=== PATIENT | female | born 1975 | race Caucasian/White ===

== ENCOUNTER 2018-04-28 06:28 | Emergency (ER) | payer SELFPAY ==
[2018-04-28] MEDS ORDERED: OCTREOTIDE ACETATE INJ/PF 100 MCG/1 ML SDV IV ONE (06:50)
[2018-04-28] MEDS ORDERED: PANTOPRAZOLE SODIUM 40 MG VIAL IV ONE (06:50)
[2018-04-28] MEDS ORDERED: NORMAL SALINE 1000 ML 1,000 ML IV ONE (06:50)
[2018-04-28] MEDS ORDERED: NORMAL SALINE 500 ML with OCTREOTIDE ACETATE 500 MCG IV PRN ×2 (06:50)
[2018-04-28] MEDS ORDERED: PANTOPRAZOLE SODIUM 40 MG VIAL IV PRN (06:55)
--- NOTE | 2018-04-28 06:55 | ER Document Report ---
ED General - General Chief Complaint: Vomiting Stated Complaint: VOMITING BLOOD Time Seen by Provider: 04/28/18 06:35 Mode of Arrival: Ambulatory Information source: Patient Notes: 42-year-old female history of fatty liver disease with jaundice who does admit to using alcohol drinking 2 days ago presents with complaints of vomiting blood. Patient notes that this morning she woke and started vomiting 6 with large amount of blood with clots. Patient denies any previous history of such. She admits to mild epigastric pain. She denies any dark stools. Patient notes that there is no extensive family history of GI bleeds and deaths secondary to GI issues. Patient does not take any Tylenol or Motrin - HPI Onset: This morning Onset/Duration: Sudden Quality of pain: Sharp Severity: Mild Pain Level: 1 Associated symptoms: Nausea, Vomiting Exacerbated by: Denies Relieved by: Denies Similar symptoms previously: No Recently seen / treated by doctor: No - Related Data Allergies/Adverse Reactions: No Known Allergies Allergy (Unverified 04/28/18 06:43) Past Medical History - Social History Smoking Status: Former Smoker Cigarette use (# per day): No Chew tobacco use (# tins/day): No Smoking Education Provided: No Frequency of alcohol use: Social Drug Abuse: None Family History: Other - Family history of GI bleeds Patient has suicidal ideation: No Patient has homicidal ideation: No Renal/ Medical History: Denies: Hx Peritoneal Dialysis Psychiatric Medical History: Reports: Hx Depression Review of Systems - Review of Systems Notes: REVIEW OF SYSTEMS: CONSTITUTIONAL : Denies fever, chills, or sweats. Denies recent illness. EENT: Denies eye, ear, throat, or mouth pain or symptoms. Denies nasal or sinus congestion or discharge. Denies throat, tongue, or mouth swelling or difficulty swallowing. CARDIOVASCULAR: Denies chest pain. Denies palpitations or racing or irregular heart beat. Denies ankle edema. RESPIRATORY: Denies cough, cold, or chest congestion. Denies shortness of breath, difficulty breathing, or wheezing. GASTROINTESTINAL: Admits to vomiting blood GENITOURINARY: Denies difficulty urinating, painful urination, burning, frequency, blood in urine, or discharge. FEMALE GENITOURINARY: Denies vaginal bleeding, heavy or abnormal periods, irregular periods. Denies vaginal discharge or odor. MUSCULOSKELETAL: Denies back or neck pain or stiffness. Denies joint pain or swelling. SKIN: Denies rash, lesions or sores. HEMATOLOGIC : Denies easy bruising or bleeding. LYMPHATIC: Denies swollen, enlarged glands. NEUROLOGICAL: Denies confusion or altered mental status. Denies passing out or loss of consciousness. Denies dizziness or lightheadedness. Denies headache. Denies weakness or paralysis or loss of use of either side. Denies problems with gait or speech. Denies sensory loss, numbness, or tingling. Denies seizures. PSYCHIATRIC: Denies anxiety or stress. Denies depression, suicidal ideation, or homicidal ideation. ALL OTHER SYSTEMS REVIEWED AND NEGATIVE. PHYSICAL EXAMINATION: GENERAL: Well-appearing, well-nourished and in no acute distress. HEAD: Atraumatic, normocephalic. EYES: Pupils are equal round reactive to light icterus noted ENT: Nares patent, oropharynx clear without exudates. Moist mucous membranes. NECK: Normal range of motion, supple without lymphadenopathy LUNGS: Breath sounds clear to auscultation bilaterally and equal. No wheezes rales or rhonchi. HEART: Tachycardic ABDOMEN: Soft, nontender, nondistended abdomen. No guarding, no rebound. No masses appreciated. Female : deferred Musculoskeletal: Normal range of motion, no pitting or edema. No cyanosis. NEUROLOGICAL: Cranial nerves grossly intact. Normal speech, normal gait. Normal sensory, motor exams PSYCH: Normal mood, normal affect. SKIN: Patient is jaundiced Dictation was performed using [employer] voice recognition software Physical Exam - Vital signs Vitals: Resp Pulse Ox 23 H 99 04/28/18 06:30 04/28/18 06:30 Course - Re-evaluation Re-evalutation: 04/28/18 06:55 This is a 42-year-old female who appears older than stated age who is chronically jaundiced presenting with a GI bleed, given history of alcohol abuse octreotide Protonix IV fluids have been ordered lab work pending 04/28/18 07:40 [facility] paged 04/28/18 08:[address] Carver 04/28/18 13:36 pt has vomited blood and noted dark stools now, continues to be stable with max hr 101, bp 107/74 - Vital Signs Vital signs: Temp Pulse Resp BP Pulse Ox 98.8 F 99 14 107/73 97 04/28/18 12:58 04/28/18 12:58 04/28/18 12:58 04/28/18 12:58 04/28/18 12:58 - Laboratory Result Diagrams: 04/28/18 06:39 04/28/18 06:39 Laboratory results interpreted by me: 04/28/18 04/28/18 04/28/18 06:39 06:39 06:39 RBC 2.96 L Hgb 10.7 L Hct 30.9 L MCV 104 H MCH 36.3 H RDW 15.4 H Plt Count 52 L Seg Neutrophils % 80.1 H Lymphocytes % 12.5 L Chloride 109 H Carbon Dioxide 20 L BUN 3 L Creatinine 0.44 L Glucose 122 H Total Bilirubin 7.5 H Direct Bilirubin 5.3 H AST 293 H ALT 55 H Alkaline Phosphatase 188 H Albumin 3.2 L Crossmatch See Detail Critical Care Note - Critical Care Note Total time excluding time spent on procedures (mins): 44 Comments: 44 minutes of critical care time spent in direct contact evaluating and reevaluating the patient, treating symptoms, reviewing labs and studies and speaking with family and consultants excluding any procedures Discharge - Discharge Clinical Impression: Upper GI bleed Hypotension Qualifiers: Hypotension type: unspecified hypotension type Qualified Code(s): I95.9 - Hypotension, unspecified Condition: Fair Disposition: [facility]
[2018-04-28] MEDS ORDERED: OCTREOTIDE ACETATE INJ/PF 100 MCG/1 ML SDV ONE (07:00)
[2018-04-28] MEDS ORDERED: FENTANYL CITRATE INJ/PF 100 MCG/2 ML AMPUL IV ONE (07:06)
[2018-04-28] MEDS ORDERED: METOCLOPRAMIDE HCL INJ/PF 10 MG/2 ML SDV IV ONE (07:06)
[2018-04-28] MEDS ORDERED: NORMAL SALINE 250 ML IV PRN ×2 (07:07)
[2018-04-28 07:10] LABS: ABSOLUTE LYMPHOCYTES (AUTO) 0.8 10^3/uL (0.5-4.7); ABSOLUTE MONOCYTES (AUTO) 0.4 10^3/uL (0.1-1.4); ABSOLUTE NEUT (AUTO) 5.4 10^3/uL (1.7-8.2); BASOPHILS % (AUTO) 0.7 % (0-2); EOSINOPHILS % (AUTO) 0.2 % (0-6); HEMATOCRIT 30.9 % (36.0-47.0); HEMOGLOBIN 10.7 g/dL (12.0-15.5); LYMPHOCYTES % (AUTO) 12.5 % (13-45); MEAN CORPUSCULAR HEMOGLOBIN 36.3 pg (27.0-33.4); MEAN CORPUSCULAR HGB CONC 34.7 g/dL (32.0-36.0); MEAN CORPUSCULAR VOLUME 104 fl (80-97); MONOCYTES % (AUTO) 6.5 % (3-13); RED BLOOD COUNT 2.96 10^6/uL (3.72-5.28); RED CELL DISTRIBUTION WIDTH 15.4 % (11.5-14.0); SEGMENTED NEUTROPHILS % (AUTO) 80.1 % (42-78); TOTAL CELLS COUNTED % (AUTO) 100 %; WHITE BLOOD COUNT 6.8 10^3/uL (4.0-10.5)
[2018-04-28 07:11] LABS: ALANINE AMINOTRANSFERASE 55 U/L (9-52); ALBUMIN 3.2 g/dL (3.5-5.0); ALKALINE PHOSPHATASE 188 U/L (38-126); ANION GAP 14 (5-19); ASPARTATE AMINO TRANSFERASE 293 U/L (14-36); BILIRUBIN,DIRECT 5.3 mg/dL (0.0-0.4); BILIRUBIN,TOTAL 7.5 mg/dL (0.2-1.3); BLOOD UREA NITROGEN 3 mg/dL (7-20); CALCIUM 8.4 mg/dL (8.4-10.2); CARBON DIOXIDE 20 mmol/L (22-30); CHLORIDE 109 mmol/L (98-107); GLUCOSE 122 mg/dL (75-110); POTASSIUM 3.9 mmol/L (3.6-5.0); TOTAL PROTEIN 7.2 g/dL (6.3-8.2)
[2018-04-28 07:38] LABS: PLATELET COUNT 52 10^3/uL (150-450)
--- NOTE | 2018-04-28 10:24 | RADIOLOGY REPORT (SQ) ---
EXAM DESCRIPTION: U/S ABDOMEN LIMITED W/O DOP COMPLETED DATE/TIME: 04/28/2018 10:12 am REASON FOR STUDY: RUQ , vomiting COMPARISON: None. TECHNIQUE: Dynamic and static grayscale images acquired of the abdomen and recorded on PACS. Additio dipika selected color Doppler and spectral images recorded. LIMITATIONS: None. FINDINGS: PANCREAS: Not well seen. LIVER: 15.2 cm. Diffusely echogenic with a somewhat nodular contour. LIVER VASCULATURE: The portal vein appears to be thrombosed. Collaterals are present. GALLBLADDER: Sludge is present. No gallstones. No wall thickening. ULTRASOUND-DETECTED COATES'S SIGN: Negative. INTRAHEPATIC DUCTS AND COMMON DUCT: CBD and intrahepatic ducts normal caliber. No filling defects. INFERIOR VENA CAVA: Not well seen. AORTA: No aneurysm. RIGHT KIDNEY: Normal size, 9.4 cm. Normal echogenicity. No solid or suspicious masses. No hydronephr osis. No calcifications. PERITONEAL AND RIGHT PLEURAL SPACE: No ascites or effusions. OTHER: No other significant findings. IMPRESSION: Fatty infiltration of the liver. Possible portal vein thrombosis with collaterals. Gal lbladder sludge. TECHNICAL DOCUMENTATION: JOB ID: [id number] [employer]- All Rights Reserved Reading location - IP/workstation name: [email or web address]
[2018-04-28 17:29] LABS: ABSOLUTE BASOPHILS # (AUTO) 0.1 10^3/uL (0.0-0.2); ABSOLUTE MONOCYTES (AUTO) 0.4 10^3/uL (0.1-1.4); ABSOLUTE NEUT (AUTO) 5.3 10^3/uL (1.7-8.2); BASOPHILS % (AUTO) 0.9 % (0-2); LYMPHOCYTES % (AUTO) 15.2 % (13-45); MEAN CORPUSCULAR HEMOGLOBIN 35.6 pg (27.0-33.4); MEAN CORPUSCULAR HGB CONC 35.4 g/dL (32.0-36.0); MEAN CORPUSCULAR VOLUME 101 fl (80-97); MONOCYTES % (AUTO) 6.1 % (3-13); RED BLOOD COUNT 3.08 10^6/uL (3.72-5.28); RED CELL DISTRIBUTION WIDTH 18.2 % (11.5-14.0); SEGMENTED NEUTROPHILS % (AUTO) 77.8 % (42-78); TOTAL CELLS COUNTED % (AUTO) 100 %; WHITE BLOOD COUNT 6.8 10^3/uL (4.0-10.5)
[2018-04-28 17:59] LABS: PLATELET COUNT 42 10^3/uL (150-450)
[2018-04-28 18:07] VITALS: BP 123/87
== END 2018-04-28 18:47 | disposition short-term general hospital (02) ==
LOC: ER 06:28
DX: K92.2 Gastrointestinal hemorrhage, unspecified (principal); I95.9 Hypotension, unspecified; R11.10 Vomiting, unspecified; R17 Unspecified jaundice; Z87.891 Personal history of nicotine dependence
CPT/HCPCS: 96376; 99291; 96361; 96375; 96365; 96366; 96368; 86900; 86901; 36415; 36430; 86850; 85025; 80053; 86920; 76705; P9016; J3010; J2765; J2354; S0164; J7030; J7050